=== PATIENT | female | born 1935 | race Caucasian/White ===

== ENCOUNTER → 2018-02-10 15:30 | Outpatient (CLI) | payer MEDICARE, SELFPAY ==
--- NOTE | 2018-02-10 15:56 | RAD_ITS ---
STUDY: X-RAY - LEFT HAND REASON FOR EXAM: Female, 82 years old. Inflammatory polyarthropathy. TECHNIQUE: 3 view(s) of the hand. Ring is visible on the ring finger. Watch is present. COMPARISON: Radiographs of the right hand dated February 10, 2018. FINDINGS: There is joint space narrowing of the radiocarpal articulation consistent with degenerative arthrosis. Normal distal radioulnar joint. There is diffuse demineralization of the carpal bones. 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 Normal second through fifth carpometacarpal joints. There are small lucencies within the metacarpal heads of the middle and ring fingers probably related to erosions. Normal metacarpophalangeal joint of the thumb. Normal interphalangeal joint of the thumb. There are degenerative changes at IP joint of the thumb. Normal metacarpophalangeal joints of the second through fifth fingers. There are severe degenerative changes at the DIP joints of the index and middle fingers. There are degenerative changes of all the IP joints. There is soft tissue swelling. RAD/Hand Min 3 Views IMPRESSION: Degenerative and inflammatory changes of the hand and wrist, as described. Electronically Signed: Kayla Acosta MD at 10:14 EDT , Service support ,
--- NOTE | 2018-02-10 15:56 | RAD_ITS ---
STUDY: X-RAY - RIGHT HAND REASON FOR EXAM: Female, 82 years old. Inflammatory polyarthropathy. TECHNIQUE: 3 view(s) of the hand. A ring is visible on the ring finger. COMPARISON: Radiographs the left hand dated February 10, 2018. FINDINGS: Normal radiocarpal articulation. Normal distal radioulnar joint. There is diffuse demineralization of the carpal bones. 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 Normal second through fifth carpometacarpal joints. The metacarpal bones are osteopenic. Erosions are visible at the metacarpal head of the index finger. Normal metacarpophalangeal joint of the thumb. Normal interphalangeal joint of the thumb. There are degenerative changes of the IP joint of the thumb. Normal metacarpophalangeal joints of the second through fifth fingers. There is severe narrowing of the IP joints of the middle finger. There are lucencies in the middle phalanx little finger that may be the result of enchondroma. There is severe narrowing of the DIP joint of index finger. There are mild degenerative changes of all the IP joints. Soft tissue swelling of the hand and wrist. RAD/Hand Min 3 Views IMPRESSION: 1. Osteopenia. 2. Erosive and degenerative changes of the hand and wrist, as described. 3. 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 Electronically Signed: Kayla Acosta MD at 9:44 EDT , Service support ,
[2018-02-10 17:44] LABS: Absolute Lymphocyte Count 1.83 X10^3/ul (0.83-4.51); Absolute Neutrophil Count 3.3 X10^3/uL (2.0-7.7); Basophil# 0.03 X10^3/uL; Basophil% 0.5 % (0-1); Eosinophil# 0.17 X10^3/uL; Eosinophils% 2.7 % (0-5); Hematocrit 43.5 % (37-47); Hemoglobin 14.4 g/dl (12.0-15.0); Lymphocyte # 1.83 X10^3/ul (4.0); Lymphocyte % 29.2 % (19-41); Mean Corp Hgb Conc 33.1 g/gl (32-36); Mean Corpuscular Hgb 30.8 pg (27.0-32.0); Mean Corpuscular Volume 92.9 fL (81-99); Mean Platelet Vol. 9.3 fl (6.2-12.0); Monocyte# 0.88 X10^3/uL; Monocyte% 14.1 % (0-10); Neutrophil # 3.34 X10^3/uL (2.7-7.7); Neutrophil % 53.3 % (47-70); Platelet Count 299 K/mm3 (150-450); RBC Distribution Width CV 12.9 % (11.6-14.6); RBC Distribution Width SD 43.1 fl (35.1-43.9); Red Blood Count 4.68 M/mm3 (4.2-5.4); White Blood Count 6.3 K/mm3 (4.4-11.0)
[2018-02-10 17:49] LABS: POSITIVE COUNT NO; POSITIVE DIFFERENTIAL NO; POSITIVE MORPHOLOGY NO
[2018-02-10 18:06] LABS: Erythrocyte Sedimentation Rate 15 mm/hr (0-30)
[2018-02-10 18:25] LABS: ALB/GLOB Ratio 1.1 RATIO (0.9-2.4); AST(SGOT) 27 U/L (15-37); Alanine Aminotransfer ALT/SGPT 22 U/L (13-56); Albumin, Serum 3.6 g/dL (3.2-5.0); Alkaline Phosphatase 90 U/L (45-117); Anion Gap 8 (5-15); BUN 26 mg/dL (7-18); BUN/Creat Ratio 27.5 RATIO (10-20); Calcium,Total 9.3 mg/dL (8.5-10.1); Chloride 100 mmol/L (98-107); Creatinine, Serum 0.94 mg/dL (0.55-1.02); EST Glomerular Filtration Rate 61 mL/min (>60); Est Glom Filt Rate - Afr Amer 73 mL/min (>60); Globulin 3.3 g/dL (2.2-4.2); Glucose 85 mg/dL (74-106); Potassium 4.5 mmol/L (3.5-5.1); Protein, Total 6.9 g/dL (6.4-8.2); Rheumatoid Factor < 10.0 IU/mL (<15); Sodium Level 138 mmol/L (136-145)
[2018-02-14 11:53] LABS: CCP IgG Antibodies 4 units (0-19); HEPATITIS B SURFACE AG Negative (Negative); Hep B Surface Antibodies Non Reactive (.); Hep C Antibodies <0.1 s/co ratio (0.0-0.9)
[2018-02-14 12:00] LABS: ANTINUCLEAR ANTIBODIES DIRECT Positive (Negative)
== END ==
PROVIDERS: Family Provider Nurse Practitioner Adult Health; PCP Nurse Practitioner Adult Health; Visit Provider Internal Medicine Rheumatology
DX: M06.4 Inflammatory polyarthropathy (principal); M15.9 Polyosteoarthritis, unspecified; I10 Essential (primary) hypertension; E03.9 Hypothyroidism, unspecified; E78.5 Hyperlipidemia, unspecified; K57.90 Diverticulosis of intestine, part unspecified, without perforation or abscess without bleeding
CPT/HCPCS: 36415; 73130; 80053; 85025; 85652; 86038; 86140; 86200; 86431; 86706; 86803; 87340